=== PATIENT | male | born 1965 | race Caucasian/White ===

== ENCOUNTER 2018-01-03 19:07 | Emergency (ER) | payer OTHER ==
[~2018-01-03] VITALS: Ht 203.2 cm; Wt 77.1 kg
[2018-01-03] MEDS ORDERED: AMBIEN10 MG PO (19:15)
[2018-01-03] MEDS ORDERED: ALBUTEROL SULFAT2 MG PO (19:16)
[2018-01-03] MEDS ORDERED: WELLBUTRIN XL300 MG PO (19:16)
[2018-01-04] MEDS ORDERED: SYMBICORT 16010.2 GM IH (01:02)
[2018-01-04] MEDS ORDERED: VENTOLIN HFA18 GM IH (01:02)
[2018-01-04] MEDS ORDERED: ALBUTEROL2.5 MG/3 M IH (01:02)
[2018-01-04] MEDS ORDERED: SINGULAIR 10MG10 MG PO (01:02)
[2018-01-04] MEDS ORDERED: SULINDAC200 MG PO (01:02)
[2018-01-04] MEDS ORDERED: ZYNCOF 20-400120 ML PO (01:02)
== END 2018-01-04 00:52 | disposition home or self-care (01) ==
LOC: ER 19:07
DX: J45.998 Other asthma (principal); G89.11 Acute pain due to trauma; R07.89 Other chest pain; M54.6 Pain in thoracic spine

== ENCOUNTER → 2018-06-08 | Emergency (ER) | payer OTHER ==
[~2018-06-08] VITALS: Ht 172.7 cm; Wt 77.1 kg
[~2018-06-08] MED LIST: ALBUTEROL SULFAT2 MG PO; ALBUTEROL2.5 MG/3 M IH; AMBIEN10 MG PO; SINGULAIR 10MG10 MG PO; SULINDAC200 MG PO; SYMBICORT 16010.2 GM IH; VENTOLIN HFA18 GM IH; WELLBUTRIN XL300 MG PO; ZYNCOF 20-400120 ML PO
== END | disposition left against medical advice (07) ==
LOC: ER 16:45
DX: J45.901 Unspecified asthma with (acute) exacerbation (principal); J11.1 Influenza due to unidentified influenza virus with other respiratory manifestations

== ENCOUNTER → 2018-07-12 | Emergency (ER) | payer OTHER | END | disposition left against medical advice (07) | LOC: ER 23:06 | DX: Z53.20 Procedure and treatment not carried out because of patient's decision for unspecified reasons (principal) ==

== ENCOUNTER 2020-02-09 20:39 | Emergency (ER) | payer OTHER ==
[~2020-02-09] VITALS: Ht 177.8 cm; Wt 79.4 kg
== END 2020-02-09 22:26 | disposition home or self-care (01) ==
LOC: ER 20:39
DX: M79.671 Pain in right foot (principal)

== ENCOUNTER 2022-04-18 18:13 | Emergency (ER) | payer OTHER ==
[~2022-04-18] VITALS: Ht 172.7 cm; Wt 78.0 kg
[2022-04-18] MEDS ORDERED: CABENUVA 400 MG-4 ML IM (18:25)
== END 2022-04-18 22:30 | disposition home or self-care (01) ==
LOC: ER 18:13
DX: S90.31XA Contusion of right foot, initial encounter (principal); X58.XXXA Exposure to other specified factors, initial encounter; Y93.K1 Activity, walking an animal; Y92.488 Other paved roadways as the place of occurrence of the external cause; Y99.9 Unspecified external cause status

== ENCOUNTER 2022-08-06 10:03 | Emergency (ER) | payer OTHER ==
[~2022-08-06] VITALS: Ht 172.7 cm; Wt 80.7 kg
[~2022-08-06 10:03] MED LIST changes: +CABENUVA 400 MG-4 ML IM
[2022-08-06] MEDS ORDERED: LOSARTAN-HCTZ1 EAC2 PO (10:45)
== END 2022-08-06 11:59 | disposition home or self-care (01) ==
LOC: ER 10:03
DX: H10.212 Acute toxic conjunctivitis, left eye (principal); I10 Essential (primary) hypertension; J45.909 Unspecified asthma, uncomplicated

== ENCOUNTER 2023-11-21 08:13 | Emergency (ER) | payer OTHER ==
[~2023-11-21] VITALS: Ht 172.7 cm; Wt 79.4 kg
[~2023-11-21 08:13] MED LIST changes: +LOSARTAN-HCTZ1 EAC2 PO
[2023-11-21] MEDS ORDERED: PROAIR RESPICL90 MCG IH (08:25)
[2023-11-21] MEDS ORDERED: SINGULAIR4 M1 (08:25)
[2023-11-21] MEDS ORDERED: MILLIPRED5 MG (08:25)
[2023-11-21 12:27] LABS: HEMATOCRIT 43.2 % (39.0-48.0); HEMOGLOBIN 14.7 g/dL (13-16.00); MEAN CORPUSCULAR HEMOGLOBIN 29.8 pg (27.00-32.0); MEAN CORPUSCULAR HGB CONC 33.9 g/dl (32.0-36.0); PLATELET COUNT 333 K/uL (150-450); RED BLOOD COUNT 4.91 M/uL (4.00-6.00); RED CELL DISTRIBUTION WIDTH 16.1 % (11.5-14.5)
[2023-11-21] MEDS ORDERED: GENTAMICIN SULFA5 ML OP (13:17)
== END 2023-11-21 14:50 | disposition home or self-care (01) ==
LOC: ER 08:14
DX: H10.13 Acute atopic conjunctivitis, bilateral (principal); Z21 Asymptomatic human immunodeficiency virus [HIV] infection status; Z20.822 Contact with and (suspected) exposure to COVID-19